=== PATIENT | male | born 1995 | race Caucasian/White ===

== ENCOUNTER 2017-03-29 22:26 | Observation (INO) | payer OTHER ==
[~2017-03-29 22:26] MED LIST: ISOVUE-370 76%-LOCM 1 ML ONE
[2017-03-29 22:52] LABS: Bilirubin Negative (Negative); Blood, Urine Negative (Negative); Glucose, Urine (Dipstick) Negative (Negative); Ketone, Urine Negative (Negative); Nitrite Negative (Negative); Protein, Urine (Dipstick) Negative (Neg-Trace); Urobilinogen 0.2 mg/dL (0.2-1.0)
[2017-03-29 23:06] LABS: #Basophils 0.1 thou/uL (0.0-0.2); #Eosinphils 0.1 thou/uL (0.0-0.7); #Lymphocytes 1.3 thou/uL (1.20-3.40); #Monocytes 0.8 thou/uL (0.11-0.59); #Neutrophils 14.9 thou/uL (1.40-6.50); %Basophils 0.4 % (0.0-1.0); %Eosinophils 0.6 % (0.0-10.0); %Lymphocytes 7.6 % (21.0-51.0); %Monocytes 4.9 % (0.0-10.0); Hematocrit 45.6 % (42.0-52.0); Mean Platelet Volume 6.5 fL (7.4-10.4); Red Blood Cell (RBC) Count 5.01 mill/uL (4.70-6.10); White Blood Cell (WBC) Count 17.2 thou/uL (4.8-10.8)
[2017-03-29 23:24] LABS: ALT (SGPT) 57 U/L (8-55); AST (SGOT) 37 U/L (5-34); Alkaline Phosphatase 74 U/L (40-150); Anion Gap 11 mmol/L (10-20); BUN (Urea Nitrogen) 12 mg/dL (8.9-20.6); Bilirubin, Total 0.6 mg/dL (0.2-1.2); Calc. Creatinine Clearance 0 mL/min (70-130); Calcium 9.6 mg/dL (7.8-10.44); Carbon Dioxide 27 mmol/L (22-29); Chloride 102 mmol/L (98-107); Estimated GFR-MDRD Greater than 90; Globulin 3.3 g/dL (2.4-3.5)
[2017-03-29 23:25] LABS: CK (CPK) 695 U/L (30-200); Lipase 6 U/L (8-78)
--- NOTE | 2017-03-30 00:02 | CT ---
EXAM: ABDOMEN CT WITH CONTRAST PELVIC CT WITH CONTRAST 03/29/17 HISTORY: Abdominal pain, which began today. Evaluate for appendicitis. COMPARISON: None. TECHNIQUE: An abdomen and pelvic CT performed with IV contrast. Enteric contrast was not administered. Coronal r eformatted images are submitted for interpretation. Sagittal reformatted images are submitted for in terpretation. FINDINGS: ABDOMEN CT: The lung bases are clear. Heart size is normal. No significant pericardial fluid. Descending thoracic aorta and abdominal aorta have a normal caliber. No periaortic fat stranding. Intra and extrahepatic portal vein is patent. Symmetric attenuation of the psoas muscles. Gallbladder is unremarkable. The liver, spleen, pancreas and adrenal glands have appropriate enhancement. No gastrohepatic, retrocrural or periportal lymphadenopathy. No mesenteric mass, lymphadenopathy, free air or free fluid. Symmetric enhancement of the kidneys. Bi laterally, no obstructive uropathy. Limited evaluation of the alimentary canal due to lack of oral contrast. Gastric mucosa and duodenum are unremarkable. Multiple normal caliber small bowel loops. Ileocecal junction demonstrates fecaliza tion of the terminal ileum, likely due to incomplete ileocecal valve. Scattered fecal material in a n ondistended, nondilated colon. There is mild mesenteric fat stranding in the right lower quadrant, in ferior to the cecal apex. There appears to be a blind ending tubular structures with a distal appendi colith. This tubular structure measures approximately 1 cm. The possibility of appendicitis is raised . There is no evidence of abscess or perforation. PELVIC CT: Urinary bladder is unremarkable. No pelvic mass, lymphadenopathy, free air or free fluid. There are n o lytic or blastic lesions in the osseous structures. IMPRESSION: Findings suggestive for appendicitis without associated perforation or abscess. Results of the study discussed with Dr. Raymundo, 03/29/17 at 11:52 p.m. Code CR POS: [facility]
[2017-03-30] MEDS ORDERED: Morphine 4 MG/ML VIAL ONE ×3 (00:18→15:34)
[2017-03-30] MEDS ORDERED: Ondansetron HCl/PF 4 MG/2 ML Vial ONE ×2 (00:22→15:52)
[2017-03-30] MEDS ORDERED: MEROPENEM 1 GM/50 ML 1 GM in Premix Bag 1 BAG IVPB SCH (00:30)
[2017-03-30] MEDS ORDERED: Morphine 2 mg/2ml in 0.9% NaCl PF SYRINGE SLOW IVP PRN (01:53)
[2017-03-30] MEDS ORDERED: Ondansetron HCl/PF 4 MG/2 ML Vial IVP PRN (01:54)
[2017-03-30] MEDS ORDERED: Ondansetron ODT 4 MG TAB SL PRN (01:54)
[2017-03-30] MEDS ORDERED: Morphine 4 MG/ML VIAL SLOW IVP PRN (01:54)
[2017-03-30] MEDS: Sodium Chloride 0.9% 1,000 ML IV SCH ×2 (02:38→10:18)
[2017-03-30 02:53] VITALS: BMI 42.3
--- NOTE | 2017-03-30 07:39 | HP ---
CHIEF COMPLAINT: Right lower quadrant abdominal pain. HISTORY OF PRESENT ILLNESS: The patient is a 21-year-old previously healthy white male. He notes on set of right lower abdominal pain about noon yesterday. He had nausea and vomiting associated with t his. The pain persisted and he presented to the emergency room late last night. A CT scan was obtai sangeetha with findings consistent with acute appendicitis. White blood cell count is elevated at 17,000. PAST MEDICAL HISTORY: Significant for recent sinusitis. PAST SURGICAL HISTORY: None. CURRENT MEDICATIONS: Cefdinir and a cough suppressant. ALLERGIES: No known drug allergies. 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 He is or iginally from [place]. He does not smoke. He drinks alcohol occasionally. His parents are prese nt at bedside. REVIEW OF SYSTEMS: Otherwise, unremarkable. FAMILY HISTORY: Noncontributory. PHYSICAL EXAMINATION: VITAL SIGNS: Temperature is 98.4, pulse 87, blood pressure 115/78. GENERAL: Well-developed, well-nourished, obese white male resting in bed in no acute distress. He i s sleeping when I arrived. He is alert and oriented x3 and cooperative. HEENT: Unremarkable. NECK: Supple, without mass or tenderness. LUNGS: Clear to auscultation throughout. CARDIAC: Regular rate and rhythm without murmur. ABDOMEN: Soft with focal right lower quadrant tenderness. EXTREMITIES: Unremarkable. LABORATORY AND X-RAY FINDINGS: As mentioned, he has a leukocytosis. Hemoglobin normal. Chemistry p rofile is unremarkable. He has mild elevation of transaminases. ASSESSMENT: Patient with acute appendicitis. PLAN: Laparoscopic appendectomy. I have discussed the operation in detail with the patient as well as potential risks. He understands and agrees to surgery at this time.
[2017-03-30] MEDS ORDERED: cefOXitin 2 GM, Syringe 1 ML in Sterile Water 10 ML SLOW IVP SCH ×2 (08:30→15:30)
[2017-03-30] MEDS ORDERED: Lidocaine 1% PF 5 ML VIAL ONE (15:52)
[2017-03-30] MEDS ORDERED: Ketorolac Tromethamine 30 MG/ML VIAL ONE ×2 (15:52→17:04)
[2017-03-30] MEDS ORDERED: Dexamethasone 20 MG/5 ML VIAL ONE (15:52)
[2017-03-30] MEDS ORDERED: Succinylcholine Chloride 20 MG/ML 10 ml SYRINGE FS ONE (15:52)
[2017-03-30] MEDS ORDERED: Propofol 200 MG/20 ML VIAL ONE (15:52)
[2017-03-30] MEDS ORDERED: Bupivacaine/Epinephrine 0.25% 30 ML VIAL ONE (15:56)
[2017-03-30] MEDS ORDERED: Fentanyl 250 MCG/5 ML VIAL ONE (16:02)
[2017-03-30] MEDS ORDERED: Fentanyl 100 MCG/2 ML VIAL ONE (17:40)
[2017-03-30 19:05] VITALS: BP 117/73; TEMP 97.8
--- NOTE | 2017-04-02 10:54 | OP ---
DATE OF OPERATION: 03/30/2017 PREOPERATIVE DIAGNOSIS: Acute appendicitis. POSTOPERATIVE DIAGNOSIS: Acute appendicitis. OPERATION PERFORMED: Laparoscopic appendectomy. SURGEON: Nilo Saldaña M.D. ANESTHESIA: General endotracheal. INDICATIONS: The patient is a 21-year-old obese white male. He presented with findings consistent w ith acute appendicitis and taken to the operating room at this time for appendectomy. DESCRIPTION OF OPERATION: Informed consent was obtained. The patient was taken to the operating orin m where general endotracheal anesthesia was obtained with the patient in supine position. Abdomen wa s prepped with ChloraPrep and draped in sterile fashion. Local anesthetic was infiltrated and a 5-mm infraumbilical incision was created through, which a Veress needle was passed into the peritoneal ca vity and pneumoperitoneum established using carbon dioxide up to a pressure of 15 mmHg. A 5-mm troca r port was passed through this same incision. Laparoscopic camera was passed through this port. Und er direct vision, 2 additional ports were placed including a 5-mm left lower quadrant port and a 12-m m suprapubic port. Attention was turned to the right lower quadrant. The patient had obvious acute appendicitis within an inflamed and indurated appendix. The mesoappendix was grasped and taken down using electrocautery . The base of the appendix was skeletonized. This did not appear to be significantly inflamed at th e base, nor was it particularly dilated. I decided to divide the appendix between PDS Endoloop ties. These were placed 1 cm apart at the base of the appendix and the appendix was divided sharply betwe en them. The appendix was placed in a specimen retrieval sac, which was removed through the suprapub ic port site. The fascia was closed at this location using 0 Vicryl suture and a GraNee needle. The appendiceal stump was cauterized. The right lower quadrant and pelvis were thoroughly irrigated. A ll irrigant was aspirated. All ports and instruments were removed under direct vision. Pneumoperito neum was carefully evacuated. Quarter percent Marcaine with epinephrine was infiltrated in each port site. Skin edges approximated with 4-0 Monocryl subcuticular suture. Dermabond was placed external ly. There were no complications. The patient tolerated the procedure well and was taken to recovery room in stable condition.
== END 2017-03-30 20:43 | disposition home or self-care (01) ==
LOC: ERS 22:26 → SJJU 03-30 00:27
PROVIDERS: ADMIT Specialist; ATTEND Specialist
PROC: 0DTJ4ZZ Resection of Appendix, Percutaneous Endoscopic Approach (ICD-10-PCS; principal; 2017-03-30)
DX: K35.80 Unspecified acute appendicitis (principal); E66.9 Obesity, unspecified; Z68.41 Body mass index [BMI] 40.0-44.9, adult
CPT/HCPCS: 74177; 80053; 81003; 82550; 83690; 85025; 86140; 88304; 96361; 96365; 96374; 96375; 96376; A4216; G0378; J0131; J0694; J1100; J1885; J2001; J2270; J2405; J2704; J3010